=== PATIENT | female | born 1960 | race Caucasian/White ===

== ENCOUNTER 2023-01-03 09:27 | Emergency (ER) | payer OTHER, SELFPAY ==
[2023-01-03 09:29] VITALS: BP 204/96; PULSE 96; RESP 23; O2SAT 99
[2023-01-03 09:30] VITALS: BP 204/96; PULSE 94; RESP 21; TEMP 36.8; O2SAT 99; BMI 30.8
[2023-01-03 09:39] VITALS: O2SAT 100
--- NOTE | 2023-01-03 09:39 | EKG12_ITS ---
Test Reason : CP Blood Pressure : / mmHG Vent. Rate : 094 BPM Atrial Rate : 094 BPM P-R Int : 126 ms QRS Dur : 086 ms QT Int : 344 ms P-R-T Axes : 035 -19 042 degrees QTc Int : 430 ms Normal sinus rhythm Normal ECG Confirmed by JEET EASON MD ([id number]), business editor PAULINO FAIRCHILD ([id number]) on 01/05/2023 11:17:57 AM Referred By: PL Confirmed By:JEET EASON MD
--- NOTE | 2023-01-03 09:46 | ED.VIS.CHEST ---
HPI History of Present Illness Chief Complaint: Chest Pain Informant: patient Onset/Context/Timing Onset: Days Timing: Intermittent Quality: Positive for Dull Location: Substernal Current Severity: Mild Maximum Severity: Mild Worsened By: Nothing Relieved By: Nothing Associated Symptoms: Positive for Nausea; Negative for Vomiting, Diaphoresis, Dyspnea, Cough, Fever, Lightheadedness, Acid Reflux or Palpitations Narrative Narrative: 62-year-old female history of hypertension and prediabetic. She is a non-smoker. She has no history of cardiac disease. She had a prior negative stress test in the past. She is never had a DVT or PE or risk factors. No leg pain or swelling. No hemoptysis. No exertional chest pain. States she has not felt well for several weeks even months. In the last several days she has noticed upper sternal chest discomfort and back discomfort. No exertional symptoms. No dyspnea. No hemoptysis. Denies any abdominal pain. Denies any fever or chills. Never really felt like this before. Prior Similar Symptoms: No Recent Illness/Hospitalization: No CVD Risk Factors: Positive for Hypertension; Negative for Smoking PE Risk Factors: Negative for Recent Travel/Surgery, Recent Immobilization, Prior DVT or PE, Cancer or OCP + Smoking + >/=35 TAD Risk Factors: Negative for Marfan's Syndrome PFSH PFSH Allergy/AdvReac Type Severity Reaction Status Date / Time No Known Allergies Allergy Verified 01/03/23 09:43 Social History Smoking Status: Former smoker ROS ROS ED ROS Narrative Atypical nonexertional chest discomfort. Back discomfort. Review of Systems ROS Unobtainable: Denies due to encephalopathy Constitutional Constitutional ED: Denies chills or fever(s) Eyes Eyes: Reports none ENT ENT ED: Denies ear pain Cardiovascular Cardiovascular: Reports as per HPI and chest pain; Denies palpitations or racing heartbeat Respiratory/Chest Respiratory/Chest: Denies cough or dyspnea Gastrointestinal Gastrointestinal: Reports nausea; Denies abdominal pain, constipation, diarrhea, melena or vomiting Genitourinary Genitourinary ED: Denies dysuria or hematuria Musculoskeletal Musculoskeletal: Denies arthralgias Integumentary Denies abscess Neurologic Neurologic: Denies headache(s) Psychiatric Psychiatric: Denies anxiety Endocrine Endocrinology: Denies cold intolerance Hematologic/Lymphatic Hematologic/Lymphatic: Denies easy bleeding Allergic/Immunologic Allergic/Immunologic ED: Denies mouth swelling EXAM Physical Exam Narrative Exam Narrative: Well-appearing 62-year-old female. Vital signs stable afebrile. Initial blood pressure is elevated 204/96. Her pulse ox is 99% on room air. She is in no distress. at bedside. H EENT exam unremarkable. Neck nontender. Lungs clear equal symmetrical bilaterally. Heart regular rhythm rate about 90 no murmur. Chest wall nontender. Abdomen soft nontender. No right upper quadrant tenderness. No peritoneal signs. Back nontender. She has multiple Salonpas pads on her back. Moving all 4 extremities. Equal symmetrical radial pulses. Calves are nontender without edema or cords. Normal motor strength. Neurologic exam is normal. Benign exam. Const Vital Signs: 01/03/23 09:30 01/03/23 09:29 01/03/23 09:39 Temperature 98.3 F Temperature Source Temporal Pulse Rate 94 96 Respiratory Rate 21 H 23 H Respiratory Effort Respiratory Pattern Blood Pressure 204/96 H 204/96 H Blood Pressure Mean 132 132 Pulse Ox 99 99 100 Oxygen Delivery Method Room Air Room Air Room Air 01/03/23 09:46 Temperature Temperature Source Pulse Rate Respiratory Rate Respiratory Effort Normal Non-Labored Respiratory Pattern Normal Blood Pressure Blood Pressure Mean Pulse Ox Oxygen Delivery Method Positive well nourished and well developed; Negative for cachectic, contractures or unkempt General Appearance ED: well developed and NAD; Negative for unkempt, cachectic, contractures or pallor Nutritional Appearance: Negative for cachectic HEENT Reports moist mucous membranes normocephalic and atraumatic; Negative for trauma or tenderness Eyes PERRL and EOMs intact bilaterally General Eye ED: Negative for pale conjunctiva or scleral icterus Neck no lymphadenopathy, supple and no JVD Chest Wall inspection of chest normal and palpation of chest normal Chest: Negative for tenderness Resp normal respiratory effort and clear to auscultation bilaterally Effort and Inspection: Negative for respiratory distress Auscultation: Negative for rales, rhonchi or wheezes Cardio regular rate, regular rhythm, S1 normal heart sound, S2 normal heart sound and no murmurs Rate: Negative for bradycardia or tachycardic Rhythm: Negative for abnormal rhythm Peripheral Pulses: pulses 2+ throughout GI normal to inspection, nondistended, normoactive bowel sounds, soft to palpation, non-tender, non-distended and no masses Auscultation: Negative for hyperactive bowel sounds Palpation: Negative for splenomegaly or mass Back/Spine no CVA tenderness and no thoracic nor lumbar tenderness General Back: Negative for CVA tenderness Cervical Spine: Negative for cervical spine tenderness Neuro oriented x3, CN's II-XII intact bilaterally and no sensory deficits noted Sensorium / Orientation: awake, alert, oriented to person, oriented to place and oriented to time; Negative for confused or lethargic Motor Exam: strength 5/5 throughout Psych mental status grossly normal Appearance: Negative for unkempt Attitude: No agitated Mood & Affect: Negative for depressed, anxious or tearful Skin no rashes or lesions noted and no wounds General Skin Exam: Negative for jaundice or pallor Rashes: rashes noted Trauma: Negative for abrasion or laceration MDM MDM MDM Narrative Medical decision making narrative: 62-year-old female with atypical nonexertional chest and back discomfort. She has been feeling well for weeks to months. Clinically this does not sound like cardiac etiology. She will go undergo a cardiac work-up. She has no risk factors for DVT or PE nor any physical findings or any history. I do not think this is gallbladder with atypical referral to pain or chest. Does not really sound like reflux. Patient doing well on repeat exam at 10:49 AM. She will be discharged home in elderly she needs a repeat troponin. She will be given IV Toradol. Outpatient follow-up with her primary care physician. We discussed all of her test results. Clinically looks well at this time. History & Record Review Discussion w/independent historian: Patient and Family Lab Data Attestation: I reviewed the patient's lab results. Lab results narrative: CBC normal. White count of 6. H&H 13 and 41. Electrolytes unremarkable gap of 7. BUN and creatinine. Glucose 141. Initial troponin 7. Labs: Laboratory Results - last 24 hr 01/03/23 01/03/23 09:40 09:40 WBC 6.8 RBC 4.70 Hgb 13.9 Hct 41.7 MCV 88.7 MCH 29.6 MCHC 33.3 RDW Std Deviation 39.4 RDW Coeff of Emilia 12.1 Plt Count 345 MPV 8.9 Immature Gran % (Auto) 0.400 Neut % (Auto) 66.0 Lymph % (Auto) 24.6 [place] % (Auto) 5.6 Eos % (Auto) 2.8 Baso % (Auto) 0.6 Absolute Neuts (auto) 4.5 Absolute Lymphs (auto) 1.68 Nucleated RBC % 0 Sodium 136 Potassium 3.5 Chloride 106 Carbon Dioxide 23.0 Anion Gap 7 BUN 13 Creatinine 0.91 Estim Creat Clear Calc 52.00 Est GFR (MDRD) Af Amer 81 Est GFR (MDRD) Non-Af 67 BUN/Creatinine Ratio 14.3 Glucose 141 H Calcium 10.4 H Troponin I High Sens 7 Radiography Chest X-Ray - ED: 1 View, Read by ED Physician, Read by Radiologist, Normal, Heart, Lungs, Mediastinum, Bony Structures, No Acute Disease and Chronic Changes Diagnostic Testing: Clinical Impression(s) from Imaging Studies Chest X-Ray 01/03/23 10:00 IMPRESSION: No acute pulmonary process Electronically Signed: Terry Garcia MD at 10:13 EDT Reading Location ID and State: [address] [place] [address] , Service support , Chest x-ray, portable, single view shows no acute abnormality. Interpreted both by myself and radiologist. Rhythm Strip Rhythm Strip: Sinus Rhythm Rate: 94 Ectopy: None EKG Initial EKG: Attestation: I personally reviewed and interpreted this EKG as follows: Interpretation: Sinus Rhythm and No Acute Injury Pattern Comments: Normal sinus rhythm rate of 94 no acute signs of FL or ischemia. Unchanged from prior EKG from November 2015. Prior EKG tracings: available for review Prior: Unchanged Discharge Plan Triage Chief Complaint: Chest Pain ED Provider: Nick Peter Dx/Rx/DC Orders Clinical Impression: Chest pain Instructions: ED Chest Pain, Uncertain Cause Primary Care Provider: Jared Vincent DO Referrals: Jared Vincent DO [Other] - 3-5 Days if not improving Activity Restrictions/Additional Instructions: Labs, chest x-ray and EKG today were all unremarkable. Follow-up with your primary care physician. Disposition Disposition: Home, Self Care
[2023-01-03 09:47] LABS: Absolute Lymphocyte Count 1.68 X10^3/uL (0.83-4.51); Absolute Neutrophil Count 4.5 X10^3/uL (2.0-7.7); Basophil# 0.04 X10^3/uL; Basophil% 0.6 % (0-1); Eosinophil# 0.19 X10^3/uL; Eosinophils% 2.8 % (0-5); Hematocrit 41.7 % (37-47); Hemoglobin 13.9 g/dL (12.0-15.0); Lymphocyte # 1.68 X10^3/ul (0.83-4.51); Lymphocyte % 24.6 % (19-41); Mean Corp Hgb Conc 33.3 g/dL (32-36); Mean Corpuscular Hgb 29.6 pg (27.0-32.0); Mean Corpuscular Volume 88.7 fL (81-99); Mean Platelet Vol. 8.9 fl (6.2-12.0); Monocyte# 0.38 X10^3/uL; Monocyte% 5.6 % (0-10); NRBC Flagged by Analyzer 0 % (0-5); Neutrophil # 4.52 X10^3/uL (2.7-7.7); Platelet Count 345 K/mm3 (150-450); RBC Distribution Width CV 12.1 % (11.6-14.6); RBC Distribution Width SD 39.4 fl (35.1-43.9); White Blood Count 6.8 K/mm3 (4.4-11.0)
--- NOTE | 2023-01-03 10:00 | RAD_ITS ---
STUDY: X-RAY CHEST REASON FOR EXAM: Female, 62 years old. Chest pain TECHNIQUE: Single AP portable view of the chest. COMPARISON: 11/20/2015 FINDINGS: EKG leads overlie the chest The lungs are clear and expanded. There is no demonstrated pleural abnormality. Normal size heart. Normal mediastinum and brandon. Normal visualized pulmonary arteries. Normal visualized aortic arch and descending thoracic aorta. There are diffuse degenerative changes of the visualized thoracic spine. Normal visualized ribs, clavicles, and shoulders. There is no demonstrated abnormality of the visualized soft tissue structures of the upper abdomen. RAD/Chest 1 View (Portable) IMPRESSION: No acute pulmonary process Electronically Signed: Terry Garcia MD at 10:13 EDT ,
[2023-01-03 10:06] LABS: Anion Gap 7 (5-15); BUN 13 mg/dL (7-18); BUN/Creat Ratio 14.3 RATIO (10-20); Calcium,Total 10.4 mg/dL (8.5-10.1); Chloride 106 mmol/L (98-107); Creatinine, Serum 0.91 mg/dL (0.55-1.02); EST Glomerular Filtration Rate 67 mL/min (>60); Est Glom Filt Rate - Afr Amer 81 mL/min (>60); Glucose 141 mg/dL (74-106); Potassium 3.5 mmol/L (3.5-5.1); Sodium Level 136 mmol/L (136-145); Troponin-I HS (w/2H Reflex) 7 pg/mL (3.0-54.0)
[2023-01-03 10:50] VITALS: BP 174/93; PULSE 78; RESP 16; O2SAT 98
[2023-01-03] MEDS: Ketorolac 15 MG/ML Vial IV (10:54)
[2023-01-03 11:12] VITALS: BP 164/77
[2023-01-03 11:44] LABS: Reflex Troponin-HS? (from REC) Y
== END 2023-01-03 11:13 | disposition home or self-care (01) ==
PROVIDERS: Emergency Provider Emergency Medicine; Visit Provider Emergency Medicine
DX: R07.9 Chest pain, unspecified (principal); Z87.891 Personal history of nicotine dependence; I10 Essential (primary) hypertension
CPT/HCPCS: 71045; 80048; 84484; 85025; 93005; 96374; 99284; A4216

== ENCOUNTER 2024-04-07 17:43 | Emergency (ER) | payer OTHER, SELFPAY ==
[2024-04-07] VITALS (14 sets, daily range): BP systolic 122–137; BP diastolic 72–84; PULSE 81–116; RESP 13–23; TEMP 38.3; O2SAT 97–100; BMI 30.2
--- NOTE | 2024-04-07 16:55 | RAD_ITS ---
STUDY: X-RAY CHEST REASON FOR EXAM: Female, 63 years old. cough, cp TECHNIQUE: PA and lateral COMPARISON: January 03, 2023 FINDINGS: The lungs are clear and expanded. There is no demonstrated pleural abnormality. Normal size heart. Normal mediastinum. There is right hilar asymmetry which is new finding since prior exam.. Normal visualized pulmonary arteries. Normal visualized aortic arch and descending thoracic aorta. Dorsal spine demonstrates mild spondylosis. Normal visualized ribs, clavicles, and shoulders. There is no demonstrated abnormality of the visualized soft tissue structures of the upper abdomen. RAD/Chest PA and Lateral IMPRESSION: Newly developed right hilar asymmetry. CT recommended to exclude possibility of a nodule. Electronically Signed: Mayito Aguilar MD at 20:10 EDT ,
--- NOTE | 2024-04-07 17:49 | EKG12_ITS ---
Test Reason : DYSRHYTHMIA Blood Pressure : / mmHG Vent. Rate : 100 BPM Atrial Rate : 100 BPM P-R Int : 142 ms QRS Dur : 080 ms QT Int : 314 ms P-R-T Axes : 047 004 042 degrees QTc Int : 405 ms Normal sinus rhythm Normal ECG Confirmed by CANDI CADET, ZAHRAA ([id number]), design editor SANDOR [place] ([id number]) on 04/12/2024 1:54:46 PM Referred By: FARNAZ Confirmed By:ANA CHRISTOPHER MD
--- NOTE | 2024-04-07 18:28 | EX.ED.DYSGE1 ---
HPI History of Present Illness Chief Complaint: Chest Other Informant: patient Narrative Narrative: For the past month or so, patient has been having intermittent pain in her right mid back, she states it is in my ribs, when it is severe it seems to get worse and sharper when she takes a deep breath but not necessarily with movement. She states it is not there all the time and it is not present right now. She has had a cough for about that time as well, occasionally productive but no blood. She states she thought all of this was allergies. This is the first time she has been evaluated for it. She has urinary frequency, is much worse today she cannot tell me how long that has been there but she does not think it is usually like this. She states that she often feels achy all over and her doctor told her she may have fibromyalgia. She states she felt poorly this morning so she checked her temperature and she had a fever of around 100 and so she went to urgent care where she also was around there, then came here today and we checked it in triage, 100.9. She denies history of DVT or PE. She denies any recent immobilization, hospitalization, or surgery. No unilateral leg pain or swelling. [facility] Medical History (Updated 04/08/24 @ 00:[address] Paul Carranza MD) Glaucoma Hypertriglyceridemia HTN (hypertension) Home Medications ?Medication ?Instructions ?Recorded ?Last Taken ?Type acetaminophen 300 mg-codeine 30 mg 1 tab PO Q6H PRN pain or cough 5 04/08/24 Unknown Rx tablet days #20 tabs levofloxacin 750 mg tablet 750 mg PO Q24H #4 tabs 04/08/24 Unknown Rx Allergy/AdvReac Type Severity Reaction Status Date / Time No Known Allergies Allergy Verified 04/07/24 17:45 Social History Smoking Status: Former smoker ROS ROS ED Constitutional Constitutional ED: Denies chills or fever(s) Eyes Eyes: Denies change in vision or diplopia ENT ENT ED: Denies rhinorrhea or sore throat Cardiovascular Cardiovascular: Denies chest pain or palpitations Respiratory/Chest Respiratory/Chest: Reports cough; Denies dyspnea Gastrointestinal Gastrointestinal: Denies abdominal pain, diarrhea, nausea or vomiting Genitourinary Genitourinary ED: Reports urinary frequency; Denies dysuria or hematuria Musculoskeletal Musculoskeletal: Reports back pain and myalgias; Denies neck pain Integumentary Denies abscess or rash Neurologic Neurologic: Denies headache(s), paresthesias or weakness Psychiatric Psychiatric: Denies suicidal thoughts EXAM Physical Exam Const Vital Signs: 04/07/24 17:44 04/07/24 17:49 04/07/24 18:24 Temperature 100.9 F H Temperature Source Oral Pulse Rate 116 H Respiratory Rate 18 Blood Pressure 132/72 H Blood Pressure Mean 92 Pulse Ox 98 Oxygen Delivery Method Room Air Room Air Room Air 04/07/24 19:44 04/07/24 20:32 04/07/24 20:33 Temperature Temperature Source Pulse Rate 83 88 88 Respiratory Rate 18 17 22 H Blood Pressure 129/83 H 129/83 H Blood Pressure Mean 98 97 Pulse Ox 97 97 Oxygen Delivery Method 04/07/24 20:45 04/07/24 21:00 04/07/24 21:15 Temperature Temperature Source Pulse Rate 84 87 93 Respiratory Rate 17 18 23 H Blood Pressure 122/80 H Blood Pressure Mean 94 Pulse Ox 97 97 98 Oxygen Delivery Method 04/07/24 21:30 04/07/24 21:45 04/07/24 22:00 Temperature Temperature Source Pulse Rate 85 88 Respiratory Rate 16 16 Blood Pressure 137/81 H Blood Pressure Mean 98 Pulse Ox 98 98 Oxygen Delivery Method 04/07/24 22:00 04/07/24 22:15 04/07/24 22:43 Temperature Temperature Source Pulse Rate 86 86 92 Respiratory Rate 17 19 H 13 Blood Pressure 137/81 H Blood Pressure Mean 98 Pulse Ox 98 97 Oxygen Delivery Method 04/07/24 22:45 04/07/24 23:00 Temperature Temperature Source Pulse Rate 87 81 Respiratory Rate 13 19 H Blood Pressure 132/84 H Blood Pressure Mean 98 Pulse Ox 100 99 Oxygen Delivery Method Positive well nourished and well developed General Appearance ED: well developed and NAD HEENT Reports moist mucous membranes normocephalic and atraumatic Eyes PERRL and EOMs intact bilaterally Neck full ROM and supple Chest Wall inspection of chest normal and palpation of chest normal Resp normal respiratory effort and clear to auscultation bilaterally Cardio regular rate, regular rhythm and no murmurs GI non-tender and non-distended Auscultation: normoactive bowel sounds Palpation: soft Back/Spine no CVA tenderness Back/Spine Narrative: No reproducible rib tenderness even with patient moving, no CVA tenderness, no rash. General Back: other FROM Extremity normal to inspection General Extremety ED: Negative for edema, pulses abnormal or tenderness General Extremity: Negative for edema or pulses abnormal Neuro oriented x3, CN's II-XII intact bilaterally and no sensory deficits noted Sensorium / Orientation: awake and alert Motor Exam: strength 5/5 throughout Psych Mood & Affect: anxious Skin no rashes or lesions noted and no wounds MDM MDM MDM Narrative Medical decision making narrative: Patient has a low-grade fever here intermittent pain in her right flank which could be lower pulmonary, renal although she has no CVA tenderness right now, she has a cough, no chest discomfort or dyspnea, and she has urinary frequency that may or may not be acute according to the patient. Therefore I am obtaining chest x-ray, her EKG is interpreted by myself as normal, and I am obtaining a urinalysis in addition to his basic labs. I reviewed all of this. Her troponin is normal. Urinalysis shows 500 leukocyte esterases and bacteriuria, but no pyuria and negative nitrate. Sent this for culture. Her chest x-ray 2 views of my interpretation shows some right hilar fullness, radiology was concerned that this could be mediastinal lymphadenopathy and recommended a CT. Since there is not an obvious explanation for pain here I sent a D-dimer. This came back elevated slightly. Therefore in considering pulmonary embolus, right-sided pneumonia, mediastinal process, and/or a renal process causing her fever, abnormal urinalysis, and pain, I obtained CT angiography of the chest in addition to CT of the abdomen pelvis simultaneously with IV contrast. I reviewed these images and agree with the result, basically showing a posterior right lower pulmonary mass, no pulmonary embolus, no lymphadenopathy or mediastinal process, and normal kidney and intra-abdominal contents. I discussed this mass with the patient. She understands that there is no way for us to rule out the possibility of cancer here. She has a leukocytosis, a productive cough, and a fever. Without another obvious source of these, assuming the urine is unlikely to represent infection, I am considering the possibility of this being a rounded pneumonia. I do not think she needs to be admitted emergently for this. Her vital signs are normal, she satting well not dyspneic, ambulatory without issue/symptoms, and she is pleasant. She understands following up as soon as possible to be reevaluated and possibly have this mass biopsied if it does not get better with antibiotics is recommended. She used to smoke but she stopped back in the 90s. I am going to treat her with antibiotics empirically with Levaquin that we would cover urine if it returns positive she is comfortable with that overall plan of following up with her doctor ALEKSANDR. She is asking for a prescription for the cough as well as pain, I think giving her a prescription for some Tylenol with codeine to cover both of these would be reasonable she has tolerated codeine in the past. I spoke with our radiology technicians so that they can send her imaging and reports to the [facility] banquet server so that it may be available to her doctor when she follows up. Lab Data Attestation: I reviewed the patient's lab results. Labs: Laboratory Results - last 24 hr 04/07/24 04/07/24 04/07/24 18:32 18:42 20:37 WBC 15.5 H RBC 4.05 L Hgb 11.8 L Hct 35.4 L MCV 87.4 MCH 29.1 MCHC 33.3 RDW Std Deviation 39.9 RDW Coeff of Emilia 12.4 Plt Count 441 MPV 8.7 Immature Gran % (Auto) 0.500 Neut % (Auto) 73.9 H Lymph % (Auto) 13.2 L [place] % (Auto) 10.9 H Eos % (Auto) 1.2 Baso % (Auto) 0.3 Absolute Neuts (auto) 11.4 H Absolute Lymphs (auto) 2.04 Nucleated RBC % 0 Differential Comment SEE COMMENT Diff Path Review May foll Platelet Estimate SLT INC Plt Morphology Comment LARGE RBC Morphology N CHROM Anisocytosis RARE D-Dimer Quant (PE/DVT) 0.84 H* Sodium 138 Potassium 3.8 Chloride 107 Carbon Dioxide 27.0 Anion Gap 4 L BUN 17 Creatinine 0.95 Estim Creat Clear Calc 59.01 Est GFR (MDRD) Af Amer 77 Est GFR (MDRD) Non-Af 63 BUN/Creatinine Ratio 17.9 Glucose 100 Calcium 10.9 H Troponin I High Sens < 3 L 4 Urine Color Yellow Urine Clarity Sl Cldy Urine pH 8.0 Ur Specific [place] 1.015 Urine Protein Negative Urine Glucose (UA) Normal Urine Ketones Negative Urine Occult Blood Negative Urine Nitrite Negative Urine Bilirubin Negative Urine Urobilinogen Normal Ur Leukocyte Esterase 500 H Urine RBC 0 SEEN Urine WBC 0-5 SEEN Ur Squamous Epith Cells 0-5 SEEN Ur Transition Epith Cell 0-5 SEEN Ur Renal Epithelial Cell 0-5 SEEN Urine Bacteria 2+ Urine Mucus 0 SEEN Radiography Diagnostic Testing: Clinical Impression(s) from Imaging Studies Chest X-Ray 04/07/24 16:55 IMPRESSION: Newly developed right hilar asymmetry. CT recommended to exclude possibility of a nodule. Electronically Signed: Mayito Aguilar MD at 20:10 EDT , Abdomen/Pelvis CT 04/07/24 21:58 IMPRESSION: 1. 4.9 cm mass in the right lower lobe. 2. No pulmonary embolism. 3. No acute intra-abdominal abnormality. Electronically Signed: Mayito Quintanilla DO at 23:16 EDT , Chest CTA 04/07/24 21:58 IMPRESSION: 1. 4.9 cm mass in the right lower lobe. 2. No pulmonary embolism. 3. No acute intra-abdominal abnormality. Electronically Signed: Mayito Quintanilla DO at 23:16 EDT , Rhythm Strip Rhythm Strip: Sinus Tach Rate: 100 Ectopy: None EKG Initial EKG: Attestation: I personally reviewed and interpreted this EKG as follows: Interpretation: Sinus Rhythm and No Acute Injury Pattern Comments: nml ekg Discharge Plan Triage Chief Complaint: Chest Other ED Provider: Paul Carranza Dx/Rx/DC Orders Clinical Impression: Mass of lower lobe of right lung, Acute lower respiratory infection Instructions: Treating Pneumonia, ED Pulmonary Nodule, Solitary Prescriptions: New acetaminophen-codeine 300-30 mg tablet 1 tab PO Q6H PRN (Reason: pain or cough) 5 Days Qty: 20 0RF levofloxacin 750 mg tablet 750 mg PO Q24H Qty: 4 0RF Primary Care Provider: Jared Vincent DO Referrals: Jared Vincent DO [Other] - As soon as possible Print Language: Nauruan Disposition Disposition: Home, Self Care
[2024-04-07 18:45] LABS: Absolute Lymphocyte Count 2.04 X10^3/uL (0.83-4.51); Absolute Neutrophil Count 11.4 X10^3/uL (2.0-7.7); Basophil# 0.05 X10^3/uL; Basophil% 0.3 % (0-1); Eosinophil# 0.18 X10^3/uL; Eosinophils% 1.2 % (0-5); Hematocrit 35.4 % (37-47); Hemoglobin 11.8 g/dL (12.0-15.0); Lymphocyte # 2.04 X10^3/ul (0.83-4.51); Lymphocyte % 13.2 % (19-41); Mean Corp Hgb Conc 33.3 g/dL (32-36); Mean Corpuscular Hgb 29.1 pg (27.0-32.0); Mean Corpuscular Volume 87.4 fL (81-99); Mean Platelet Vol. 8.7 fl (6.2-12.0); Monocyte# 1.68 X10^3/uL; Monocyte% 10.9 % (0-10); NRBC Flagged by Analyzer 0 % (0-5); Neutrophil # 11.43 X10^3/uL (2.7-7.7); Neutrophil % 73.9 % (47-70); POSITIVE DIFFERENTIAL YES; Platelet Count 441 K/mm3 (150-450); RBC Distribution Width CV 12.4 % (11.6-14.6); RBC Distribution Width SD 39.9 fl (35.1-43.9); Red Blood Count 4.05 M/mm3 (4.2-5.4); White Blood Count 15.5 K/mm3 (4.4-11.0)
[2024-04-07] MEDS: Acetaminophen 500 MG Tablet 1000 MG PO (18:48)
[2024-04-07 19:04] LABS: Mucous, Urine 0 SEEN /hpf (<or=2+); Red Blood Cells-Urine 0 SEEN /hpf (0-5)
[2024-04-07 19:06] LABS: Anion Gap 4 (5-15); BUN 17 mg/dL (7-18); BUN/Creat Ratio 17.9 RATIO (10-20); Calcium,Total 10.9 mg/dL (8.5-10.1); Chloride 107 mmol/L (98-107); Creatinine, Serum 0.95 mg/dL (0.55-1.02); EST Glomerular Filtration Rate 63 mL/min (>60); Est Glom Filt Rate - Afr Amer 77 mL/min (>60); Estimated Creatinine Clearance 59.01 ml/min; Glucose 100 mg/dL (74-106); Potassium 3.8 mmol/L (3.5-5.1); Sodium Level 138 mmol/L (136-145); Troponin-I HS (w/2H Reflex) < 3 pg/mL (3.0-54.0)
[2024-04-07 19:06] LABS: Glucose, Dipstick Normal (Normal); Ketone-Dipstick Negative (Negative); Leukocyte Esterase-Dipstick 500 /ul (Negative); Nitrite-Dipstick Negative (Negative); Occult Blood-Urine Negative /ul (Negative); Protein-Dipstick Negative (Negative); Specific Gravity, Urine 1.015 (1.002-1.030); Urine Bilirubin Dipstick Negative (Negative); Urine Urobilinogen Normal (Normal)
[2024-04-07 19:08] LABS: Color, Urine Yellow (Yellow); Urine Clarity Sl Cldy (Clear)
[2024-04-07 19:09] LABS: Differential Indicated SCAN CRITERIA MET
[2024-04-07 19:17] LABS: Anisocytosis RARE; Platelet Estimate SLT INC (ADEQ); Platelet Morphology LARGE; Red Cell Morphology N CHROM NORMAL (NORM C&C)
[2024-04-07 19:26] LABS: Squamous Epithelial Cells - UA 0-5 SEEN /hpf (5-10); Transitional Epithelial - Ur 0-5 SEEN /hpf (0-5)
[2024-04-07 19:27] LABS: Bacteria 2+ /hpf (None Seen)
[2024-04-07 19:28] LABS: Renal Epithelial Cells 0-5 SEEN /hpf (0-5); White Blood Cells 0-5 SEEN /hpf (0-5)
[2024-04-07 20:40] LABS: Reflex Troponin-HS? (from REC) Y
[2024-04-07 21:07] LABS: Troponin-I HS 4 pg/mL (3.0-54.0)
[2024-04-07 21:31] LABS: D-Dimer Quantitative (DVT/PE) 0.84 FEU/ug/m (0.27-0.49)
--- NOTE | 2024-04-07 21:58 | CT_ITS ---
INDICATION: PAIN EXAMINATION: CTA CHEST WITH CONTRAST AND CT ABDOMEN/PELVIS WITH CONTRAST TECHNIQUE: Helically acquired images were obtained of the chest following IV contrast timed in the pulmonary arterial phase with sagittal and coronal reconstructed images. Post-processing of the angiographic images was performed with multiplanar reformation and 3D reconstruction. Helically acquired images were obtained of the abdomen and pelvis with sagittal and coronal reconstructed images. Individualized dose optimization techniques were used for this CT. IV contrast dosage and agent: 100 mL of Isovue-370. COMPARISON: None. FINDINGS: CTA CHEST: LUNGS, PLEURA AND LARGE AIRWAYS: No consolidation or edema. Centrilobular emphysematous changes of the lungs. 4.9 x 3.3 x 2.9 cm mass in the posterior medial superior segment of the right lower lobe. No pleural effusion. No pneumothorax. THYROID: Unremarkable. HEART AND PERICARDIUM: No evidence of coronary artery calcification. No pericardial effusion. No evidence of right heart strain. Right ventricle to left ventricle ratio measures less than 1. MEDIASTINUM AND JACK: No mediastinal or hilar adenopathy. Esophagus is unremarkable. No hiatal hernia. VESSELS: No pulmonary embolism. Thoracic aorta is unremarkable. BONES: No acute abnormality. CT ABDOMEN/PELVIS: VESSELS: No aortic aneurysm or dissection. LIVER: No evidence of a mass. No intrahepatic or extrahepatic biliary duct dilation. GALLBLADDER: No calcified stones. No evidence of cholecystitis. PANCREAS: No focal solid or cystic mass. No evidence of pancreatitis. SPLEEN: Normal. ADRENAL GLANDS: Normal. KIDNEYS AND URETERS: No urinary tract stone. No hydronephrosis or hydroureter. No significant asymmetric perinephric stranding. URINARY BLADDER: Unremarkable. BOWEL: No evidence of diverticulosis or diverticulitis. Appendix not identified. No evidence of bowel obstruction. REPRODUCTIVE ORGANS: No evidence of a pelvic mass. PERITONEUM: No intraabdominal free fluid or free air. LYMPH NODES: No pathologically enlarged mesenteric or retroperitoneal lymph nodes. ABDOMINAL WALL: Small fat-containing supraumbilical hernia. BONES: No acute abnormality. CT/Abdomen/Pelvis W IV Cont ONLY IMPRESSION: 1. 4.9 cm mass in the right lower lobe. 2. No pulmonary embolism. 3. No acute intra-abdominal abnormality. Electronically Signed: Mayito Quintanilla DO at 23:16 EDT ,
--- NOTE | 2024-04-07 21:58 | CT_ITS ---
INDICATION: rt mid pleuritic back pain, elevated d-dimer EXAMINATION: CTA CHEST WITH CONTRAST AND CT ABDOMEN/PELVIS WITH CONTRAST TECHNIQUE: Helically acquired images were obtained of the chest following IV contrast timed in the pulmonary arterial phase with sagittal and coronal reconstructed images. Post-processing of the angiographic images was performed with multiplanar reformation and 3D reconstruction. Helically acquired images were obtained of the abdomen and pelvis with sagittal and coronal reconstructed images. Individualized dose optimization techniques were used for this CT. IV contrast dosage and agent: 100 mL of Isovue-370. COMPARISON: None. FINDINGS: CTA CHEST: LUNGS, PLEURA AND LARGE AIRWAYS: No consolidation or edema. Centrilobular emphysematous changes of the lungs. 4.9 x 3.3 x 2.9 cm mass in the posterior medial superior segment of the right lower lobe. No pleural effusion. No pneumothorax. THYROID: Unremarkable. HEART AND PERICARDIUM: No evidence of coronary artery calcification. No pericardial effusion. No evidence of right heart strain. Right ventricle to left ventricle ratio measures less than 1. MEDIASTINUM AND JACK: No mediastinal or hilar adenopathy. Esophagus is unremarkable. No hiatal hernia. VESSELS: No pulmonary embolism. Thoracic aorta is unremarkable. BONES: No acute abnormality. CT ABDOMEN/PELVIS: VESSELS: No aortic aneurysm or dissection. LIVER: No evidence of a mass. No intrahepatic or extrahepatic biliary duct dilation. GALLBLADDER: No calcified stones. No evidence of cholecystitis. PANCREAS: No focal solid or cystic mass. No evidence of pancreatitis. SPLEEN: Normal. ADRENAL GLANDS: Normal. KIDNEYS AND URETERS: No urinary tract stone. No hydronephrosis or hydroureter. No significant asymmetric perinephric stranding. URINARY BLADDER: Unremarkable. BOWEL: No evidence of diverticulosis or diverticulitis. Appendix not identified. No evidence of bowel obstruction. REPRODUCTIVE ORGANS: No evidence of a pelvic mass. PERITONEUM: No intraabdominal free fluid or free air. LYMPH NODES: No pathologically enlarged mesenteric or retroperitoneal lymph nodes. ABDOMINAL WALL: Small fat-containing supraumbilical hernia. BONES: No acute abnormality. CT/CTA Chest W/WO Contrast IMPRESSION: 1. 4.9 cm mass in the right lower lobe. 2. No pulmonary embolism. 3. No acute intra-abdominal abnormality. Electronically Signed: Mayito Quintanilla DO at 23:16 EDT ,
[2024-04-07] MEDS: Ibuprofen 600 MG Tablet PO (23:22)
[2024-04-08 01:00] VITALS: RESP 18
[2024-04-08] MEDS: levoFLOXacin 750 MG Tablet PO (01:03)
[2024-04-08 01:04] VITALS: BP 126/83; PULSE 94; RESP 18; TEMP 36.7; O2SAT 100
[2024-04-08 11:50] LABS: Pathologist Review Reviewed
== END 2024-04-08 01:05 | disposition home or self-care (01) ==
PROVIDERS: Emergency Provider Emergency Medicine; Visit Provider Emergency Medicine
DX: J22 Unspecified acute lower respiratory infection (principal); I10 Essential (primary) hypertension; Z87.891 Personal history of nicotine dependence; R91.8 Other nonspecific abnormal finding of lung field; R10.31 Right lower quadrant pain
CPT/HCPCS: 71046; 71275; 74177; 80048; 81001; 84484; 85025; 85379; 87086; 93005; 99285; Q9967